=== PATIENT | female | born 1970 | race Caucasian/White ===

== ENCOUNTER 2022-05-07 15:51 | Emergency (ER) | payer OTHER ==
[2022-05-07] MEDS ORDERED: CYCLOBENZAPRINE10 MG PO (16:40)
== END 2022-05-07 16:47 | disposition home or self-care (01) ==
LOC: ER1 15:51
DX: S63.502A Unspecified sprain of left wrist, initial encounter (principal); Z90.710 Acquired absence of both cervix and uterus; Z88.5 Allergy status to narcotic agent; F17.210 Nicotine dependence, cigarettes, uncomplicated; V89.2XXA Person injured in unspecified motor-vehicle accident, traffic, initial encounter
CPT/HCPCS: 73030; 73110; 73130; 99283